=== PATIENT | male | born 1985 | race African-American/Black ===

== ENCOUNTER 2022-07-25 14:21 | Inpatient (IN) | payer OTHER ==
[2022-07-25 17:36] VITALS: BMI 26.1
[2022-07-25] MEDS ORDERED: NICOTINE 7 MG/24 HOURS TOPICAL PATCH TD PRN (18:26)
[2022-07-25] MEDS ORDERED: BENZOCAINE/MENTHOL (CHLORASEPTIC ) LOZENGE MM PRN (18:26)
[2022-07-25] MEDS ORDERED: NICOTINE POLACRILEX 2 MG GUM BC PRN (18:26)
[2022-07-25] MEDS ORDERED: MAGNESIUM HYDROX 2400MG/30ML ORAL SUSPENSION 30 ML CUP PO PRN (18:26)
[2022-07-25] MEDS ORDERED: hydrOXYzine PAMOATE 25 MG CAPSULE (FP) PO PRN (18:26)
[2022-07-25] MEDS ORDERED: LOPERAMIDE HCL 2 MG CAPSULE PO PRN (18:26)
[2022-07-25] MEDS ORDERED: NICOTINE 10 MG CARTRIDGE (INHALER) IH PRN (18:26)
[2022-07-25] MEDS ORDERED: guaiFENesin 200 MG/10 ML 10 ML UNIT-DOSE CUPS PO PRN (18:26)
[2022-07-25] MEDS ORDERED: P-EPHED 60MG/TRIPROLIDI 2.5MG TABLET PO PRN (18:26)
[2022-07-25] MEDS ORDERED: MAG HYDROX/AL HYDROX/SIMETH 30 ML UNIT-DOSE CUP PO PRN (18:26)
[2022-07-25] MEDS ORDERED: POLYETHYLENE GLYCOL (HEALTHYLAX) 3350 17 GM PACKET PO PRN (18:26)
[2022-07-25] MEDS ORDERED: ACETAMINOPHEN 325 MG TABLET (FP) PO PRN (18:26)
[2022-07-25] MEDS ORDERED: IBUPROFEN 400 MG TABLET (FP) PO PRN (18:26)
[2022-07-25] MEDS ORDERED: MELATONIN 5 MG TABLETS PO PRN (18:26)
[2022-07-25] MEDS ORDERED: THIAMINE HCL 100 MG TABLET (FP) PO SCH (22:00)
[2022-07-25] MEDS ORDERED: LISINOPRIL 10 MG TABLET ONE (22:10)
[2022-07-25] MEDS ORDERED: LISINOPRIL 5 MG TABLET PO ONE (22:20)
[2022-07-26 06:49] VITALS: RESP 20; TEMP 97.8
[2022-07-26 09:05] VITALS: BP 144/98; PULSE 83
[2022-07-26] MEDS ORDERED: PRENATAL VITAMINS W/ FOLIC ACID TABLET (FP) PO SCH (10:00)
[2022-07-26 10:44] LABS: HEMATOCRIT 43.2 % (35.4-49); HEMOGLOBIN 13.9 GM/dL (11.7-16.9); MCH 26.9 pg (25.7-33.7); MCHC 32.1 g/dl (32.0-35.9); MEAN CELL VOLUME 83.7 fl (80-96); MEAN PLT VOLUME 10.3 fl (7.5-11.1); PLATELET COUNT 217 10^3/uL (134-434); RBC 5.16 M/mm3 (4.00-5.60); RDW 14.2 % (11.9-15.9); WHITE BLOOD COUNT 7.4 K/mm3 (4.0-10.0)
[2022-07-26 11:33] LABS: CALCIUM 9.5 mg/dL (8.5-10.1)
[2022-07-26 11:34] LABS: ALBUMIN 3.6 g/dl (3.4-5.0)
[2022-07-26 11:37] LABS: CREATININE 0.9 mg/dL (0.55-1.3)
[2022-07-26 11:39] LABS: BILIRUBIN,TOTAL 0.3 mg/dL (0.2-1); TOT PROT 7.2 g/dl (6.4-8.2)
[2022-07-26 12:15] LABS: SYPHILIS W/ RPR CONF REACTIVE (NONREACTIVE)
[2022-07-26 15:40] LABS: PH,URINE 7.5 (5.0-8.0); URINE APPEARANCE CLEAR; URINE BILIRUBIN NEGATIVE (NEGATIVE); URINE COLOR YELLOW; URINE GLUCOSE (UA) NEGATIVE (NEGATIVE); URINE KETONE NEGATIVE (NEGATIVE); URINE PROTEIN NEGATIVE (NEGATIVE)
[2022-07-26 15:41] LABS: URINE LEUK ESTERASE 1+ (NEGATIVE); URINE NITRITE NEGATIVE (NEGATIVE); URINE UROBILINOGEN 0.2 mg/dL (0.2-1.0)
[2022-07-26 16:08] LABS: EPI CELLS 18 /uL (0-25.1); HYALINE CASTS 16 /uL (0-3.1); URINE BACTERIA 11 /uL (0-1359); URINE RBC 5 /uL (0-23.9); URINE WBC 174 /uL (0-25.8)
== END 2022-07-26 12:42 | disposition left against medical advice (07) | DRG 770 ==
LOC: YASAS 14:21 → Y6N 21:08 → UNDOADMIN 21:08 → Y3E 07-26 01:09
PROVIDERS: ADMIT Allergy & Immunology; ATTEND Psychiatry & Neurology Pain Medicine
PROC: HZ42ZZZ Group Counseling for Substance Abuse Treatment, Cognitive-Behavioral (ICD-10-PCS; principal; 2022-07-26)
DX: F15.20 Other stimulant dependence, uncomplicated (principal); F17.210 Nicotine dependence, cigarettes, uncomplicated; I10 Essential (primary) hypertension
CPT/HCPCS: 36415; 80053; 81003; 85027; 86593; 86780; 86803; C9803-CS; U0003; U0005